=== PATIENT | male | born 1935 | race Hispanic/Latino ===

== ENCOUNTER 2018-05-14 22:15 | Emergency (ER) | payer MEDICARE ==
--- NOTE | 2018-05-14 22:49 | Emergency Department Report ---
HPI - General Chief Complaint: High BP Time Seen by Provider: 05/14/18 22:48 - HPI HPI: This is a 82-year-old male here reported that he bought a new blood pressure cuff today and it was reading high he reports that the top number was 200 and a bottom number was over 100. He said that he called the fire department and they told him to come to the emergency room. Patient blood pressure is 169/51 in triage. Denies any pain in these asymptomatic with elevated blood pressure. He has a history of arthritis, diabetes that is diet-controlled, GERD and hypertension high cholesterol. He has been followed by Dr. Harpreet Arroyo who is a director of student affairs due to faint heart murmur, Dr. Jay Lucas is his primary care doctor and [facility] is his urologist. Patient is on losartan, amlodipine and finasteride. Pain is 0-10. Patient said he came here because he wants to make sure that his blood pressure was not too high or to compare the machine. ED Past Medical Hx - Past Medical History Previous Medical History?: Yes Hx Hypertension: Yes Hx Diabetes: Yes Hx GERD: Yes Hx Arthritis: Yes - Surgical History Past Surgical History?: Yes Hx Appendectomy: Yes Additional Surgical History: left knee replacement - Family History Family history: hypertension - Social History Smoking Status: Never Smoker Substance Use Type: None ED Review of Systems ROS: Stated complaint: HBP Other details as noted in HPI Constitutional: denies: chills, fever Eyes: denies: vision change ENT: denies: throat pain, epistaxis, congestion Respiratory: denies: cough, shortness of breath, wheezing Cardiovascular: denies: chest pain, palpitations, edema, syncope Gastrointestinal: denies: abdominal pain, nausea, diarrhea, constipation, hematemesis Genitourinary: denies: urgency, dysuria, hematuria Musculoskeletal: denies: back pain, joint swelling, arthralgia Skin: denies: rash Neurological: denies: headache, weakness, numbness, paresthesias, abnormal gait, vertigo Physical Exam - Physical Exam Vital Signs: Vital Signs 05/14/18 05/14/18 05/14/18 22:20 22:24 22:29 Temperature 97.3 F L 97.3 F L Pulse Rate 58 L 60 Respiratory 16 17 Rate Blood Pressure 172/49 169/51 169/51 Blood Pressure 169/51 [Left] O2 Sat by Pulse 100 100 Oximetry General: This is a 82-year-old male well-nourished well-developed in no acute distress. Physical Exam: Head: Normocephalic atraumatic. Scalp examination and normal. Nontender to palpate. No abrasion, contusion or hematoma noted. Mouth: Oral mucosa moist, tongue is normal, uvula is midline, no [employer] or drooling, oral airways patent and uvula is Lungs: They are to auscultated bilaterally, no rhonchi wheezes or rales. No use of accessory muscles. No chest wall tenderness CV: S1, S2. Regular rate rhythm negative murmur. Eyes: Bilateral pupils equal and reactive to light, conjunctival injection or icterus. Bilateral EOM intact and normal accommodation. No nystagmus. Lids are normal. She has swelling below her lower lids that is not erythema and nontender to palpate. No induration and no sign of cellulitis. Skin: Clean dry and intact, no rash or lesions. Extremity: No cce. + 2 pulses in all extremities, no neurovascular compromise.No laceration, bruises then or contusion noted to extremities. Negative Homans signs bilaterally. No palpable cord bilateral lower extremity. Musculoskeletal: Range of motion in all extremities, no joint crepitus, erythema or effusion. Skin: Clean dry and intact, no rashes no lesions Mood: Normal mood and behavior ED Course Vital Signs 05/14/18 05/14/18 05/14/18 22:20 22:24 22:29 Temperature 97.3 F L 97.3 F L Pulse Rate 58 L 60 Respiratory 16 17 Rate Blood Pressure 172/49 169/51 169/51 Blood Pressure 169/51 [Left] O2 Sat by Pulse 100 100 Oximetry Vital Signs 05/14/18 05/14/18 05/14/18 22:20 22:24 22:29 Temperature 97.3 F L 97.3 F L Pulse Rate 58 L 60 Respiratory 16 17 Rate Blood Pressure 172/49 169/51 169/51 Blood Pressure 169/51 [Left] O2 Sat by Pulse 100 100 Oximetry 05/14/18 05/14/18 23:11 23:17 Temperature Pulse Rate 64 Respiratory Rate Blood Pressure Blood Pressure 161/36 162/58 [Left] O2 Sat by Pulse Oximetry - Reevaluation(s) Reevaluation #1: 05/14/18 23:12 Patient stable throughout ED course. No chest pain, shortness of breath, headache blurred vision or dizziness. ED Medical Decision Making - Medical Decision Making Patient here due to elevated blood pressure at home and he 0 in the emergency room without any symptoms. He is on medication and being followed by a director of student affairs, urologist and primary care doctor. Manual blood pressure and ED is 162/58. Critical care attestation.: If time is entered above; I have spent that time in minutes in the direct care of this critically ill patient, excluding procedure time. ED Disposition Clinical Impression: Elevated blood pressure reading with diagnosis of hypertension Disposition: - TO HOME OR SELFCARE Is pt being admited?: No Does the pt Need Aspirin: No Condition: Stable Instructions: Hypertension (ED), DASH Eating Plan (ED) Additional Instructions: Please call your primary care doctor on Thursday to schedule an appointment for follow-up visit. Taking blood pressure first thing in the morning and and keep a log. Take your blood pressure medication and then take your blood pressure 2- 3 hours later. If you blood pressure remains elevated greater than 170/100 and she becomes symptomatic such as chest pain, shortness of breath, headache, nausea vomiting, back pain or abdominal pain, repeat return to the emergency room otherwise follow-up E primary care doctor. Take your blood pressure on your left arm with arm over your heart rates and keep a log and take to primary care visit with you Referrals: FABIO, primary care physician [Other] - 05/17/18 (Dr. Lucas) KRISTINA ARROYO MD [Staff Physician] - 05/17/18
== END 2018-05-14 23:27 | disposition home or self-care (01) ==
LOC: ED 22:15
CPT/HCPCS: 99282